=== PATIENT | female | born 1960 | race Two or more races ===

== ENCOUNTER 2019-02-21 07:40 | Day surgery (SDC) | payer OTHER ==
[~2019-02-21 07:40] MED LIST: LIPITOR40 MG; LISINOPRIL-HCT1 EACH PO; LISINOPRIL2.5 MG
== END 2019-02-21 19:45 | disposition home or self-care (01) ==
LOC: CIR.AMB 07:40
DX: N81.6 Rectocele (principal); K59.02 Outlet dysfunction constipation

== ENCOUNTER 2025-02-28 14:05 | Outpatient (CLI) | payer OTHER | END 2025-02-28 14:06 | disposition home or self-care (01) | LOC: SONOGRAMA 14:05 | PROVIDERS: ATTEND Pathology Anatomic Pathology & Clinical Pathology | DX: D34 Benign neoplasm of thyroid gland (principal); E07.89 Other specified disorders of thyroid; E04.9 Nontoxic goiter, unspecified ==